=== PATIENT | female | born 1985 | race African-American/Black ===

== ENCOUNTER 2022-08-22 09:59 | Emergency (ER) | payer MEDICAID, OTHER ==
[~2022-08-22] VITALS: Ht 180.3 cm; Wt 90.9 kg
[~2022-08-22 09:59] MED LIST: PREN1TAB52 PO
[2022-08-22 10:12] VITALS: BP 134/81
[2022-08-22 10:20] LABS: COVID AG,FIA SOURCE NASAL SWAB
[2022-08-22 10:57] LABS: RAPID GROUP A STREP NEGATIVE (NEGATIVE)
[2022-08-22 11:04] LABS: INFLUENZA TYPE A NEGATIVE FOR TYPE A (NEGATIVE); INFLUENZA TYPE B NEGATIVE FOR TYPE B (NEGATIVE)
== END 2022-08-22 12:20 | disposition left against medical advice (07) ==
LOC: EMS 10:05
DX: J02.9 Acute pharyngitis, unspecified (principal); Z53.21 Procedure and treatment not carried out due to patient leaving prior to being seen by health care provider; Z20.822 Contact with and (suspected) exposure to COVID-19
CPT/HCPCS: 87430; 87804; 99281; Z7502